=== PATIENT | female | born 1995 | race African-American/Black ===

== ENCOUNTER 2021-06-14 08:15 | Emergency (ER) | payer MEDICAID ==
[~2021-06-14] VITALS: Ht 170.2 cm; Wt 78.0 kg
[2021-06-14] MEDS ORDERED: MORPHINE SULFATE 4 MG/ML CPJ (NOT FOR IM USE) IV STA (08:29)
[2021-06-14] MEDS ORDERED: ONDANSETRON HCL 4MG/2ML INJ IV STA (08:29)
[2021-06-14] MEDS ORDERED: SODIUM CHLORIDE 0.9% 1,000 ML IV ONE (08:30)
[2021-06-14] MEDS ORDERED: LORAZEPAM 2MG/ML CPJ IV ONE (08:30)
[2021-06-14 09:10] LABS: BASOPHILS % 0.7 % (0.0-2.0); EOSINOPHILS % 0.7 % (0.0-5.0); HEMATOCRIT. 37.7 % (36.0-48.0); LYMPHOCYTES % 19.9 % (20.0-50.0); MEAN CORPUSCULAR HEMOGLOBIN 31.8 pg (28.0-32.0); MEAN CORPUSCULAR VOLUME 92.3 fL (81.0-99.0); MEAN PLATELET VOLUME 7.9 fl (7.4-10.4); MONOCYTES % 2.7 % (2.0-8.0); PLATELET 346 x1000/uL (130-400); RED BLOOD CELL COUNT 4.09 mill/uL (4.2-5.4); RED CELL DISTRIBUTION WIDTH 13.8 % (11.6-14.6)
[2021-06-14 09:25] LABS: CHLORIDE 110 mEq/L (98-107)
[2021-06-14 09:29] LABS: ETHANOL BLOOD < 10 mg/dL
[2021-06-14 09:36] LABS: HCG SCREEN NEGATIVE
[2021-06-14] MEDS ORDERED: MORPHINE SULFATE 4 MG/ML CPJ (NOT FOR IM USE) IV NR (09:49)
[2021-06-14] MEDS ORDERED: LORAZEPAM 2MG/ML CPJ IV NR (09:50)
[2021-06-14 10:20] VITALS: BP 149/74
[2021-06-14] MEDS ORDERED: DICY20TA11 MT (11:43)
[2021-06-14] MEDS ORDERED: METO-293 MT (11:43)
[2021-06-14] MEDS ORDERED: ONDA4TAB11 PO (11:43)
[2021-06-14] MEDS ORDERED: OMEP20CA14 MT (11:43)
== END 2021-06-14 11:56 | disposition home or self-care (01) ==
LOC: ER 08:59
DX: K80.50 Calculus of bile duct without cholangitis or cholecystitis without obstruction (principal)
CPT/HCPCS: 36415; 76705; 80053; 80320; 83690; 84703; 85025; 96361; 96374; 96375; 99284; J2060; J2270; J2405; J7030; G0480

== ENCOUNTER 2021-12-17 07:56 | Inpatient (IN) | payer MEDICAID ==
[~2021-12-17] VITALS: Ht 162.6 cm; Wt 72.6 kg
[~2021-12-17 07:56] MED LIST: DICY20TA2 MT; METO-293 MT; OMEP20CA14 MT; ONDA4TAB11 PO
[2021-12-17] MEDS ORDERED: ACETAMINOPHEN 325MG TABLET PO ONE (08:15)
[2021-12-17] MEDS: LIDOCAINE 5% PATCH TOP SCH (08:31)
[2021-12-17] MEDS ORDERED: KETOROLAC 30MG/ML VIAL IV STA (08:35)
[2021-12-17] MEDS ORDERED: ONDANSETRON HCL 4MG/2ML INJ IV STA (08:35)
[2021-12-17] MEDS: VISCOUS LIDOCAINE 2% 15 ML UDC PO STA ×2 (08:35→08:51)
[2021-12-17] MEDS ORDERED: MAGNESIUM/ALUMINUM HYDROXIDE/SIMETHICONE 30ML UDC PO STA (08:35)
[2021-12-17] MEDS ORDERED: SODIUM CHLORIDE 0.9% 1,000 ML IV ONE (08:45)
[2021-12-17 08:57] LABS: BASOPHILS % 0.8 % (0.0-2.0); EOSINOPHILS % 1.3 % (0.0-5.0); HEMATOCRIT. 39.8 % (36.0-48.0); HEMOGLOBIN. 13.4 g/dL (12.0-16.0); LYMPHOCYTES % 23.6 % (20.0-50.0); MEAN CORPUSCULAR HEMOGLOBIN 31.5 pg (28.0-32.0); MEAN CORPUSCULAR VOLUME 93.8 fL (81.0-99.0); MEAN PLATELET VOLUME 7.8 fl (7.4-10.4); MONOCYTES % 3.6 % (2.0-8.0); NEUTROPHILS % 70.7 % (40.0-76.0); PLATELET 321 x1000/uL (130-400); RED BLOOD CELL COUNT 4.25 mill/uL (4.2-5.4); RED CELL DISTRIBUTION WIDTH 13.4 % (11.6-14.6)
[2021-12-17 09:02] LABS: CLARITY URINE CLOUDY (CLEAR); COLOR URINE YELLOW (YELLOW); KETONES URINE TRACE (NEGATIVE); PROTEIN URINE 1+ (NEGATIVE); SPECIFIC GRAVITY URINE 1.025 (1.005-1.030)
[2021-12-17 09:03] LABS: CHLORIDE 109 mEq/L (98-107); LEUKOCYTE ESTERASE URINE NEGATIVE (NEGATIVE); NITRITE URINE NEGATIVE (NEGATIVE); OCCULT BLOOD URINE TRACE (NEGATIVE); UROBILINOGEN URINE 0.2 E.U./dL (0.2-1.0)
[2021-12-17 09:12] LABS: ETHANOL BLOOD < 10 mg/dL
[2021-12-17 09:16] LABS: *AMPHETAMINES SCREEN URINE NEGATIVE (NEGATIVE); *BARBITURATES SCREEN URINE NEGATIVE (NEGATIVE); *BENZODIAZEPINES SCREEN URINE NEGATIVE (NEGATIVE); *COCAINE SCREEN URINE NEGATIVE (NEGATIVE); METHADONE URINE SCREEN NEGATIVE (NEGATIVE); OPIATES URINE SCREEN NEGATIVE (NEGATIVE); PHENCYCLIDINE URINE SCREEN NEGATIVE (NEGATIVE)
[2021-12-17 09:31] LABS: CANNABINOID URINE SCREEN PRESUMTIVE POSITIVE (NEGATIVE)
[2021-12-17] MEDS ORDERED: MORPHINE SULFATE 4 MG/ML CPJ (NOT FOR IM USE) IV ONE ×2 (10:15→11:00)
[2021-12-17] MEDS ORDERED: METOCLOPRAMIDE HCL 10MG/2ML VIAL IV NR (10:15)
[2021-12-17] MEDS ORDERED: ONDANSETRON HCL 4MG/2ML INJ IV NR (18:15)
[2021-12-17] MEDS ORDERED: MORPHINE SULFATE 4 MG/ML CPJ (NOT FOR IM USE) IV NR (18:15)
[2021-12-17] MEDS ORDERED: DIPHENHYDRAMINE 50MG/ML VIAL IV PRN (22:00)
[2021-12-17] MEDS ORDERED: KETOROLAC 30MG/ML VIAL IV PRN (22:00)
[2021-12-17] MEDS ORDERED: ZOLPIDEM TARTRATE 5MG TABLET PO PRN (22:00)
[2021-12-17] MEDS ORDERED: ONDANSETRON HCL 4MG/2ML INJ IV PRN (22:00)
[2021-12-17] MEDS ORDERED: MORPHINE SULFATE 2 MG/ML CPJ (NOT FOR IM USE) IV PRN (22:00)
[2021-12-17] MEDS ORDERED: LORAZEPAM 2MG/ML CPJ IV PRN (22:00)
[2021-12-17] MEDS ORDERED: ACETAMINOPHEN 325MG TABLET PO PRN ×2 (22:00)
[2021-12-17] MEDS ORDERED: NALOXONE HCL 0.4MG/ML VIAL IV PRN (22:30)
[2021-12-17] MEDS: DEXT 5%/0.45% NACL 1000ML 1,000 ML IV SCH (23:26)
[2021-12-17] MEDS: PANTOPRAZOLE SODIUM 40 MG/VIAL IV SCH (23:26)
[2021-12-18 00:15] VITALS: BP 130/70
[2021-12-18 01:17] VITALS: BP 130/70
[2021-12-18 04:31] LABS: BASOPHILS % 0.5 % (0.0-2.0); EOSINOPHILS % 0.1 % (0.0-5.0); HEMATOCRIT. 37.8 % (36.0-48.0); HEMOGLOBIN. 12.7 g/dL (12.0-16.0); LYMPHOCYTES % 18.5 % (20.0-50.0); MEAN CORPUSCULAR HEMOGLOBIN 31.1 pg (28.0-32.0); MEAN CORPUSCULAR VOLUME 92.5 fL (81.0-99.0); MEAN PLATELET VOLUME 8.1 fl (7.4-10.4); NEUTROPHILS % 74.9 % (40.0-76.0); PLATELET 276 x1000/uL (130-400); RED BLOOD CELL COUNT 4.08 mill/uL (4.2-5.4); RED CELL DISTRIBUTION WIDTH 13.2 % (11.6-14.6)
[2021-12-18 04:53] LABS: CHLORIDE 105 mEq/L (98-107)
[2021-12-18 05:03] LABS: PHOSPHORUS 3.8 mg/dL (2.5-4.9)
[2021-12-18] MEDS: DEXT 5%/0.45% NACL 1000ML 1,000 ML IV SCH ×3 (06:06→22:00)
[2021-12-18 08:00] VITALS: BP_SYST 124; BP_SYST 142; BP_DIAS 85; BP_DIAS 94
[2021-12-18] MEDS: LIDOCAINE 5% PATCH TOP SCH (08:54)
[2021-12-18] MEDS: PANTOPRAZOLE SODIUM 40 MG/VIAL IV SCH ×2 (11:09→22:42)
[2021-12-18 12:00] VITALS: BP 140/89
[2021-12-18 16:00] VITALS: BP 132/90
[2021-12-19] MEDS: DEXT 5%/0.45% NACL 1000ML 1,000 ML IV SCH (07:45)
[2021-12-19 08:00] VITALS: BP 161/77
[2021-12-19] MEDS: LIDOCAINE 5% PATCH TOP SCH (09:37)
[2021-12-19] MEDS: PANTOPRAZOLE SODIUM 40 MG/VIAL IV SCH (11:39)
[2021-12-19 12:00] VITALS: BP 143/94
[2021-12-19 14:50] VITALS: BP 126/82
== END 2021-12-19 16:00 | disposition home or self-care (01) | DRG 249 ==
LOC: ER 07:56 → EDBEDREQ 13:31 → MICUSO 21:01 → ENRESERV 23:51 → 6EST 12-18 00:57
PROVIDERS: ADMIT Internal Medicine; ATTEND Internal Medicine
DX: R11.2 Nausea with vomiting, unspecified (principal); K80.20 Calculus of gallbladder without cholecystitis without obstruction; F12.90 Cannabis use, unspecified, uncomplicated; Z82.49 Family history of ischemic heart disease and other diseases of the circulatory system
CPT/HCPCS: 36415; 74176; 76700; 80053; 80305; 80320; 81003; 83735; 84100; 85025; 99285; C9113; J1885; J2270; J2405; J2765; J7030; G0480

== ENCOUNTER 2022-04-06 13:18 | Inpatient (IN) | payer MEDICAID ==
[~2022-04-06] VITALS: Ht 160 cm; Wt 68.0 kg
[2022-04-06] MEDS ORDERED: MORPHINE SULFATE 4 MG/ML CPJ (NOT FOR IM USE) IV STA (13:36)
[2022-04-06] MEDS ORDERED: MAGNESIUM/ALUMINUM HYDROXIDE/SIMETHICONE 30ML UDC PO STA (13:36)
[2022-04-06] MEDS ORDERED: VISCOUS LIDOCAINE 2% 15 ML UDC PO STA (13:36)
[2022-04-06] MEDS ORDERED: ONDANSETRON HCL 4MG/2ML INJ IV STA (13:36)
[2022-04-06] MEDS ORDERED: PANTOPRAZOLE SODIUM 40 MG/VIAL IV STA (13:36)
[2022-04-06 15:10] LABS: BASOPHILS % 0.7 % (0.0-2.0); EOSINOPHILS % 0.5 % (0.0-5.0); HEMATOCRIT. 37.7 % (36.0-48.0); HEMOGLOBIN. 12.9 g/dL (12.0-16.0); MEAN CORPUSCULAR HEMOGLOBIN 31.6 pg (28.0-32.0); MEAN CORPUSCULAR VOLUME 92.3 fL (81.0-99.0); MEAN PLATELET VOLUME 8.3 fl (7.4-10.4); MONOCYTES % 3.7 % (2.0-8.0); NEUTROPHILS % 78.1 % (40.0-76.0); PLATELET 346 x1000/uL (130-400); RED BLOOD CELL COUNT 4.08 mill/uL (4.2-5.4); RED CELL DISTRIBUTION WIDTH 13.3 % (11.6-14.6)
[2022-04-06 15:19] LABS: INR 1.1; PROTHROMBIN TIME 11.4 sec (9.6-11.0)
[2022-04-06 15:23] LABS: CHLORIDE 105 mEq/L (98-107)
[2022-04-06 15:30] LABS: ETHANOL BLOOD < 10 mg/dL
[2022-04-06 15:40] LABS: HCG SCREEN NEGATIVE
[2022-04-06] MEDS ORDERED: VISCOUS LIDOCAINE 2% 15 ML UDC PO NR (17:15)
[2022-04-06] MEDS ORDERED: ONDANSETRON HCL 4MG/2ML INJ IV NR (17:15)
[2022-04-06] MEDS ORDERED: SODIUM CHLORIDE 0.9% 1,000 ML IV ONE ×2 (17:15→22:00)
[2022-04-06] MEDS ORDERED: PANTOPRAZOLE SODIUM 40 MG/VIAL IV NR (17:15)
[2022-04-06] MEDS ORDERED: MORPHINE SULFATE 4 MG/ML CPJ (NOT FOR IM USE) IV NR (17:15)
[2022-04-06] MEDS ORDERED: MAGNESIUM/ALUMINUM HYDROXIDE/SIMETHICONE 30ML UDC PO NR (17:15)
[2022-04-06 17:54] LABS: CLARITY URINE TURBID (CLEAR); COLOR URINE YELLOW (YELLOW); KETONES URINE 3+ (NEGATIVE); LEUKOCYTE ESTERASE URINE 1+ (NEGATIVE); NITRITE URINE NEGATIVE (NEGATIVE); OCCULT BLOOD URINE NEGATIVE (NEGATIVE); PH URINE >=9.0 (4.5-8.0); PROTEIN URINE 1+ (NEGATIVE); UROBILINOGEN URINE 0.2 E.U./dL (0.2-1.0)
[2022-04-06 18:27] LABS: *AMPHETAMINES SCREEN URINE NEGATIVE (NEGATIVE); *BARBITURATES SCREEN URINE NEGATIVE (NEGATIVE); *BENZODIAZEPINES SCREEN URINE NEGATIVE (NEGATIVE); *COCAINE SCREEN URINE NEGATIVE (NEGATIVE); METHADONE URINE SCREEN NEGATIVE (NEGATIVE); OPIATES URINE SCREEN NEGATIVE (NEGATIVE); PHENCYCLIDINE URINE SCREEN NEGATIVE (NEGATIVE)
[2022-04-06 18:37] LABS: CANNABINOID URINE SCREEN PRESUMTIVE POSITIVE (NEGATIVE)
[2022-04-06] MEDS ORDERED: KETOROLAC 30MG/ML VIAL IV ONE (19:30)
[2022-04-06] MEDS ORDERED: KETOROLAC 30MG/ML VIAL IV NR (19:30)
[2022-04-06] MEDS ORDERED: MORPHINE SULFATE 2 MG/ML CPJ (NOT FOR IM USE) IV ONE (22:00)
[2022-04-07] MEDS ORDERED: MORPHINE SULFATE 4 MG/ML CPJ (NOT FOR IM USE) IV NR (05:15)
[2022-04-07] MEDS ORDERED: PIPERACILLIN/TAZ 3.375G PREMIX 50 ML IV NR ×2 (05:15→17:00)
[2022-04-07] MEDS ORDERED: ONDANSETRON HCL 4MG/2ML INJ IV PRN (14:30)
[2022-04-07] MEDS ORDERED: DIPHENHYDRAMINE 50MG/ML VIAL IV PRN (14:30)
[2022-04-07] MEDS: SODIUM CHLORIDE 0.9% 1,000 ML IV SCH ×2 (14:30→23:41)
[2022-04-07] MEDS ORDERED: MAGNESIUM/ALUMINUM HYDROXIDE/SIMETHICONE 30ML UDC PO PRN (14:30)
[2022-04-07] MEDS ORDERED: ACETAMINOPHEN 325MG TABLET PO PRN ×2 (14:30)
[2022-04-07] MEDS ORDERED: KETOROLAC 30MG/ML VIAL IV PRN (14:30)
[2022-04-07] MEDS ORDERED: POTASSIUM CHLORIDE INJ 40 MEQ in DEXT 5% WATER 500 ML IV NR (15:00)
[2022-04-07 15:57] LABS: BASOPHILS % 0.3 % (0.0-2.0); EOSINOPHILS % 0.1 % (0.0-5.0); HEMATOCRIT. 36.4 % (36.0-48.0); HEMOGLOBIN. 12.4 g/dL (12.0-16.0); LYMPHOCYTES % 16.2 % (20.0-50.0); MEAN CORPUSCULAR HEMOGLOBIN 31.7 pg (28.0-32.0); MEAN CORPUSCULAR VOLUME 92.6 fL (81.0-99.0); MEAN PLATELET VOLUME 8.2 fl (7.4-10.4); MONOCYTES % 6.6 % (2.0-8.0); NEUTROPHILS % 76.8 % (40.0-76.0); PLATELET 303 x1000/uL (130-400); RED BLOOD CELL COUNT 3.93 mill/uL (4.2-5.4); RED CELL DISTRIBUTION WIDTH 13.7 % (11.6-14.6)
[2022-04-07 16:06] LABS: CHLORIDE 104 mEq/L (98-107)
[2022-04-07 18:00] VITALS: BP 133/86
[2022-04-07 20:00] VITALS: BP 134/87
[2022-04-07 20:50] VITALS: BP 134/57
[2022-04-07] MEDS: PIPERACILLIN/TAZOBACTAM 3.375 G in DEXTROSE 5% WATER 50 ML IV SCH (21:53)
[2022-04-08] VITALS: BP 130/86
[2022-04-08 04:00] VITALS: BP 118/67
[2022-04-08] MEDS: PIPERACILLIN/TAZOBACTAM 3.375 G in DEXTROSE 5% WATER 50 ML IV SCH ×2 (05:13→14:00)
[2022-04-08 07:41] LABS: CHLORIDE 108 mEq/L (98-107)
[2022-04-08 07:42] LABS: BASOPHILS % 0.6 % (0.0-2.0); EOSINOPHILS % 1.2 % (0.0-5.0); HEMATOCRIT. 33.5 % (36.0-48.0); HEMOGLOBIN. 11.5 g/dL (12.0-16.0); LYMPHOCYTES % 30.6 % (20.0-50.0); MEAN CORPUSCULAR VOLUME 93.2 fL (81.0-99.0); MEAN PLATELET VOLUME 8.5 fl (7.4-10.4); MONOCYTES % 6.1 % (2.0-8.0); NEUTROPHILS % 61.5 % (40.0-76.0); PLATELET 258 x1000/uL (130-400); RED CELL DISTRIBUTION WIDTH 13.5 % (11.6-14.6)
[2022-04-08 07:54] LABS: GAMMA GLUTAMYL TRANSPEPTIDASE 67 IU/L (7-32)
[2022-04-08 08:00] VITALS: BP 127/74
[2022-04-08] MEDS ORDERED: PANTOPRAZOLE SODIUM 40 MG/VIAL IV SCH (09:00)
[2022-04-08 12:00] VITALS: BP 126/75
[2022-04-08 14:46] VITALS: BP 126/75
[2022-04-08 16:00] VITALS: BP 136/90
== END 2022-04-08 17:05 | disposition home or self-care (01) ==
LOC: ER 13:18 → MICUSO 04-07 13:24 → EDBEDREQ 04-07 13:29 → EDBEDREQDT 04-07 13:29 → EDBEDREQTM 04-07 13:29 → EDBEDREQ 04-07 13:31 → 6EST 04-07 19:52
PROVIDERS: ADMIT Internal Medicine; ATTEND Internal Medicine
DX: K80.50 Calculus of bile duct without cholangitis or cholecystitis without obstruction (principal); K76.0 Fatty (change of) liver, not elsewhere classified; R16.0 Hepatomegaly, not elsewhere classified; D72.829 Elevated white blood cell count, unspecified; E87.6 Hypokalemia; Z79.899 Other long term (current) drug therapy; Z82.49 Family history of ischemic heart disease and other diseases of the circulatory system
CPT/HCPCS: 36415; 74181; 76705; 80048; 80053; 80076; 80305; 80320; 81003; 82248; 82977; 83735; 84703; 85025; 99285; C9113; J1885; J2270; J2405; J2543; J3480; J7030; J7060; G0480